=== PATIENT | female | born 2000 | race Two or more races ===

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

== ENCOUNTER 2018-06-20 14:20 | Emergency (ER) | payer OTHER ==
[2018-06-20 14:28] VITALS: BP 133/68; PULSE 100; TEMP 98.7; BMI 29.2
--- NOTE | 2018-06-20 14:48 | PDOC ---
History of Present Illness - General Chief Complaint: Pain Stated Complaint: PAIN Time Seen by Provider: 06/20/18 14:37 History Source: Patient - History of Present Illness Occurred: reports: yesterday Severity: Yes: moderate Lower Extremity Pain Location: left: knee Method of Injury: Yes: fell Past History - Past Medical History Allergies/Adverse Reactions: Allergies Allergy/AdvReac Type Severity Reaction Status Date / Time No Known Allergies Allergy Verified 06/20/18 14:28 Home Medications: Ambulatory Orders Famotidine [Pepcid] 20 mg PO BID #60 tablet 01/14/17 Oxycodone HCl/Acetaminophen [Percocet 5-325 mg Tablet] 1 - 2 tab PO Q6H #28 tab MDD 4 01/14/17 Anemia: Yes (hx) Asthma: Yes (? exercise and cold) Cancer: No Cardiac Disorders: No CVA: No COPD: No CHF: No Dementia: No Diabetes: No GI Disorders: No Disorders: No HTN: No Hypercholesterolemia: No Liver Disease: No Seizures: No Thyroid Disease: No - Surgical History Gastric Stapling: Yes - Immunization History Immunization Up to Date: Yes - Suicide/Smoking/Psychosocial Hx Smoking History: Never smoked Have you smoked in the past 12 months: No Hx Alcohol Use: No Drug/Substance Use Hx: No Substance Use Type: None Review of Systems - Review of Systems Musculoskeletal: Yes: Joint Pain *Physical Exam - Vital Signs Last Vital Signs Temp Pulse Resp BP Pulse Ox 98.7 F 100 H 20 133/68 99 06/20/18 14:26 06/20/18 14:26 06/20/18 14:26 06/20/18 14:26 06/20/18 14:26 - Physical Exam General Appearance: Yes: Appropriately Dressed. No: Apparent Distress HEENT: positive: Normal Voice Neck: positive: Supple Respiratory/Chest: negative: Respiratory Distress Extremity: positive: Other (~1cm area of swelling over site of tibial tuberosity (chronic per pt), ttp, FROMI, limping in ER) Integumentary: positive: Dry, Warm Neurologic: positive: Fully Oriented, Alert, Normal Mood/Affect ED Treatment Course - RADIOLOGY Radiology Studies Ordered: Category Date Time Status KNEE 3 POS-LEFT [RAD] Stat Radiology 06/20/18 14:40 Ordered Medical Decision Making - Medical Decision Making 06/20/18 14:40 17-year-old female here with left knee injury. Patient states she fell yesterday onto me and has been having pain since. Patient states she had an injury in childhood that left her with a chronic area of swelling to anterior aspect of left knee that makes it hard to kneel directly onto knee. States that is the same site that is now hurting. No acute swelling and able to bear weight. Has not taken anything for pain See excam M/l mild knee sprain -XR -dose of motrin -anticipate dc w/ pain control 06/20/18 14:58 XR negative for any obvious acute fracture. There is a chronic appearing deformity to tibial tuberosity that coincides with pt's hx of old injury in childhood. DC with [id number] medication as needed for pain. Ortho referral given *DC/Admit/Observation/Transfer Diagnosis at time of Disposition: Knee sprain Qualifiers: Encounter type: initial encounter Involved ligament of knee: unspecified ligament Laterality: left Qualified Code(s): S83.92XA - Sprain of unspecified site of left knee, initial encounter - Discharge Dispostion Disposition: HOME Condition at time of disposition: Good - Referrals Referrals: Lester Ramos MD [Primary Care Provider] - Lester Hood MD [Staff Physician] - - Patient Instructions Printed Discharge Instructions: Knee Sprain Additional Instructions: X-ray did not show any acute bony deformity or fracture. Take Motrin or Tylenol for pain and if you continue to have symptoms, follow-up with Dr. Hood of orthopedics - Post Discharge Activity
[2018-06-20] MEDS ORDERED: IBUPROFEN 400 MG TABLET (FP) PO ONE ×2 (14:59→15:17)
== END 2018-06-20 15:30 | disposition home or self-care (01) ==
LOC: JERFT 14:20
DX: S83.8X2A Sprain of other specified parts of left knee, initial encounter (principal); W18.39XA Other fall on same level, initial encounter; Y93.89 Activity, other specified; Y92.89 Other specified places as the place of occurrence of the external cause; Y99.8 Other external cause status; Z86.2 Personal history of diseases of the blood and blood-forming organs and certain disorders involving the immune mechanism; Z87.09 Personal history of other diseases of the respiratory system
CPT/HCPCS: 73562-TC-LT-FY; 99281-25